=== PATIENT | male | born 1965 | race Caucasian/White ===

== ENCOUNTER 2021-12-29 01:21 | Emergency (ER) | payer OTHER ==
[2021-12-29 01:26] VITALS: BP 124/85; RESP 22; TEMP 98.3
[2021-12-29] MEDS ORDERED: IPRATROPIUM-ALBUTEROL 3 ML NEB INHALATION STA (01:41)
[2021-12-29] MEDS ORDERED: methylPREDNISolone SOD SUCCI 125 MG/2 ML VIAL IM STA (01:41)
[2021-12-29] MEDS ORDERED: DOXYCYCLINE 100 MG CAP PO STA (01:41)
--- NOTE | 2021-12-29 01:44 | ED ---
URI HPI - General Chief Complaint: Upper Respiratory Infection Stated Complaint: Cough, MARIO Time Seen by Provider: 12/29/21 01:35 Source: patient, RN notes reviewed Mode of arrival: ambulatory Limitations: no limitations - History of Present Illness Initial Comments: Patient states she's had a cough for about 3 weeks. Patient states is getting worse. No fever. Patient did not check himself COVID-19. Patient is a cigarette smoker and has been so for about 50 years. Patient denies any chest pain. No hemoptysis. States he is coughing up some yellow sputum. No vomiting. No skin rashes or lesions. No ill contacts or recent travel. No headache, no fever or chills, no changes in vision or hearing, no sore throat or difficulty with speech, no neck pain, no chest pain or shortness of breath, no abdominal pain, no nausea or vomiting, no changes in urination or bowel movements, no numbness or tingling, no extremity pain, no skin rashes or lesions. Past medical, surgical, social, and family history reviewed. MD Complaint: cough, sore throat, rhinorrhea, nasal congestion - Related Data Previous Rx's Medication Instructions Recorded Albuterol Inhaler [Ventolin Hfa 2 puff INHALATION Q4HR PRN #1 each 12/29/21 Inhaler] Doxycycline [Vibramycin] 100 mg PO BID 1 Days #20 each 12/29/21 predniSONE 50 mg PO DAILY #5 tab 12/29/21 Allergies Allergy/AdvReac Type Severity Reaction Status Date / Time No Known Allergies Allergy Verified 12/29/21 01:26 Review of Systems ROS Statement: Those systems with pertinent positive or pertinent negative responses have been documented in the HPI. ROS Other: All systems not noted in ROS Statement are negative. Past Medical History Past Medical History: No Reported History History of Any Multi-Drug Resistant Organisms: None Reported Past Surgical History: Orthopedic Surgery Additional Past Surgical History / Comment(s): bilateral eye Past Psychological History: No Psychological Hx Reported Smoking Status: Current every day smoker, Never smoker Past Alcohol Use History: None Reported Past Drug Use History: None Reported General Exam - General Exam Comments Initial Comments: Vital signs stable, patient afebrile. Patient does not appear to be ill or toxic. Dry cough noted throughout the course of the interview. Adequate perfusion. Normal capillary refill Limitations: no limitations General appearance: alert, in no apparent distress Head exam: Present: atraumatic, normocephalic, normal inspection Eye exam: Present: normal appearance, PERRL, EOMI. Absent: scleral icterus, conjunctival injection, periorbital swelling ENT exam: Present: normal exam, normal oropharynx, mucous membranes moist, TM's normal bilaterally, normal external ear exam. Absent: mucous membranes dry Neck exam: Present: normal inspection, full ROM. Absent: tenderness, meningismus, lymphadenopathy Respiratory exam: Present: wheezes, rhonchi. Absent: normal lung sounds bilaterally, respiratory distress, rales, stridor, chest wall tenderness, accessory muscle use, decreased breath sounds Cardiovascular Exam: Present: regular rate, normal rhythm, normal heart sounds. Absent: systolic murmur, diastolic murmur, rubs, gallop, clicks GI/Abdominal exam: Present: soft, normal bowel sounds. Absent: distended, tenderness, guarding, rebound, rigid Extremities exam: Present: normal inspection, full ROM, normal capillary refill. Absent: tenderness, pedal edema, joint swelling, calf tenderness Back exam: Present: normal inspection Neurological exam: Present: alert, oriented X3, CN II-XII intact Psychiatric exam: Present: normal affect, normal mood Skin exam: Present: warm, dry, intact, normal color. Absent: rash Course Vital Signs 12/29/21 12/29/21 12/29/21 01:21 02:01 02:06 Temperature 98.3 F Pulse Rate 83 83 88 Respiratory 22 Rate Blood Pressure 124/85 O2 Sat by Pulse 97 Oximetry - Reevaluation(s) Reevaluation #1: 12/29/21 03:02 Medical record is reviewed Symptoms are improved here in the emergency department Patient is informed of results and questions answered Patient in no distress Procedures - Smoking Cessation Time Spent Discussing Smoking Cessation w/Patient (Minutes): 3 Patient Acknowledges Need for Cessation: Yes Medical Decision Making - Medical Decision Making Since septostomy most consistent with viral bronchitis with likely COPD exacerbation. Patient in no distress otherwise. Normal vital signs. Not consistent with ischemic heart disease or congestive heart failure. She likely has a COPD exacerbation. Chest x-ray clear. COVID-19 testing is pending. Patient is oxygenating well. Much improved at discharge. Vital signs stable, patient afebrile. We'll cover with doxycycline, prednisone for 5 days, and albuterol inhaler. Counseled on smoking cessation. Patient was told to return to the ER for any signs or symptoms worsen. Told to return immediately if any other problems arise. All questions answered. Treatment plan discussed. Patient in agreement Every effort has been made to ensure accuracy of this dictation. However, due to the limitations of electronic medical records and dictation devices, errors in charting still occur. [employer] Dr. Escobedo - Radiology Data Radiology results: report reviewed, image reviewed Disposition Clinical Impression: COPD exacerbation, Acute bronchitis, Cigarette smoker Disposition: HOME SELF-CARE Condition: Stable Instructions (If sedation given, give patient instructions): COPD (Chronic Obstructive Pulmonary Disease) (ED), Acute Bronchitis (ED), How to Stop Smoking (ED) Additional Instructions: Follow-up with your regular physician as directed. Return to the ER immediately if any symptoms worsen, new symptoms arise, or any other problems develop. Prescriptions: predniSONE 50 mg PO DAILY #5 tab Albuterol Inhaler [Ventolin Hfa Inhaler] 2 puff INHALATION Q4HR PRN #1 each PRN Reason: Wheezing Doxycycline [Vibramycin] 100 mg PO BID 1 Days #20 each Is patient prescribed a controlled substance at d/c from ED?: No Referrals: Corinne Dodson MD [Primary Care Provider] - 1-2 days Time of Disposition: 03:02
[2021-12-29 02:07] VITALS: PULSE 88
--- NOTE | 2021-12-29 02:30 | XR ---
EXAMINATION TYPE: XR chest 2V DATE OF EXAM: 12/29/2021 COMPARISON: NONE HISTORY: Cough TECHNIQUE: 2 view FINDINGS: Heart and mediastinum are normal. Lungs are clear. Diaphragm is normal. Bony thorax is inta ct. IMPRESSION: Normal chest.
== END 2021-12-29 03:40 | disposition home or self-care (01) ==
LOC: EC 01:21
DX: J44.0 Chronic obstructive pulmonary disease with (acute) lower respiratory infection (principal); F17.210 Nicotine dependence, cigarettes, uncomplicated; Z20.822 Contact with and (suspected) exposure to COVID-19
CPT/HCPCS: 94640; 87635; 71046; 99283; 96372; J2930

== ENCOUNTER → 2022-03-21 | Outpatient (CLI) | payer SELFPAY ==
[2022-03-22 00:52] LABS: African American GFR (CKD) 122.5 (60.0-200.0); Albumin 3.2 g/dL (3.8-4.9); Albumin/Globulin Ratio 2.35 (1.60-3.17); Anion Gap 5.3 mmol/L (10.00-18.00); BUN/Creat Ratio 10.25 Ratio (12.00-20.00); Blood Urea Nitrogen 6.9 mg/dL (9.0-27.0); Calcium 8.5 mg/dL (8.7-10.3); Carbon Dioxide 31.5 mmol/L (20.0-27.5); Globulin 1.3 g/dL (1.6-3.3); Non-African American GFR(CKD) 105.7 (60.0-200.0); Potassium 4.6 mmol/L (3.5-5.5); T4, Free (Free Thyroxine) 1.21 ng/dL (0.800-1.800); Total Bilirubin 0.2 mg/dL (0.30-1.20); Total Protein 4.5 g/dL (6.2-8.2)
[2022-03-22 01:22] LABS: HCT 46.3 % (39.6-50.0); HGB 15.7 g/dL (13.0-17.0); MCH 33.8 pg (27.0-32.0); MCHC 33.9 g/dL (32.0-37.0); MCV 99.6 fL (80.0-97.0); Mean Platelet Volume 11.4 fL (9.5-12.2); NRBC Per 100 WBC 0 /100 WBCS (0.0-0.0); Platelet Count 185 X 10*3/uL (140-440); RBC 4.65 X 10*6/uL (4.40-5.60); RDW 12.6 % (11.5-14.5); WBC 7.02 X 10*3/uL (4.50-10.00)
== END | disposition home or self-care (01) ==
LOC: LABWHC1 14:16
PROVIDERS: ATTEND Physician Assistant
DX: R41.3 Other amnesia (principal)
CPT/HCPCS: 36415; 80053; 82306; 82607; 84207; 84439; 84443; 84481; 85027